=== PATIENT | female | born 1970 | race Caucasian/White ===

== ENCOUNTER → 2020-11-25 06:45 | Outpatient (CLI) | payer OTHER, SELFPAY ==
--- NOTE | 2020-11-25 08:32 | NEURO_ITS ---
NCS and/or EMG Patient Report Ordering Doctor: Thuy Pool DATE OF SERVICE: 11/25/20 Indication: Intermittent tingling of the left lateral and anterior thigh. No fixed loss of sensation or weakness in the left lower extremity. No history of low back pain. Symptoms have been present for several years off and on. Findings: Nerve conduction studies were performed in the left lower extremity. The left peroneal motor study recording the extensor digitorum brevis showed a normal amplitude, normal distal latency and normal conduction velocity. No conduction block or focal slowing was present across the fibular neck. The left tibial motor study recording the abductor hallucis brevis showed a borderline normal amplitude, normal distal latency and normal conduction velocity. Left sural sensory response showed a normal amplitude and conduction velocity. Left superficial peroneal sensory response showed a normal amplitude and conduction velocity. Needle EMG of the left lower extremity and lumbar paraspinal muscles was performed. No denervation was present in any muscle. In the vastus medialis, mot or units were borderline long duration, borderline large amplitude with normal phases and recruitment. All other motor unit morphology, activation and recruitment patterns were normal. Impression: This is an essentially normal study. There is no definitive electrophysiologic evidence of lumbosacral radiculopathy or peripheral neuropathy in the left lower extremity. The borderline motor units in the left vastus medialis, in isolation, are of unclear significance. Please note: the electrodiagnosis of radiculopathy is made on the basis of excluding peripheral nerve lesions on nerve conduction studies and the needle EMG demonstrating denervation and/or reinnervation in the distribution of one or more nerve roots (i.e., acute and/or chronic axonal loss). Thus, electrodiagnostic studies are insensitive in detecting radiculopathy in the absence of axonal loss (e.g., in the setting of compression resulting in intermittent ischemia or mechanical deformation; or demyelination without axonal loss). Thus, clinical correlation is required in the interpretation of this negative electrodiagnostic study for radiculopathy. Rodrigo Elias D.O.
== END ==
PROVIDERS: PCP Physician Assistant; Referring Provider Physician Assistant; Visit Provider Physician Assistant
DX: R20.0 Anesthesia of skin (principal)
CPT/HCPCS: 95886; 95908